=== PATIENT | female | born 1970 | race African-American/Black ===

== ENCOUNTER → 2018-09-02 | Outpatient (CLI) | payer BC ==
--- NOTE | 2018-09-02 12:19 | US ---
EXAMINATION TYPE: US venous doppler duplex LE LT DATE OF EXAM: 09/02/2018 11:53 AM COMPARISON: NONE CLINICAL HISTORY: M79.605 PAIN IN LT LEG. Left leg pain x few months, no hx of blood clots, no blood thinners. SIDE PERFORMED: Left TECHNIQUE: The lower extremity deep venous system is examined utilizing real time linear array sonog mahendra with graded compression, doppler sonography and color-flow sonography. VESSELS IMAGED: External Iliac Vein (EIV) Common Femoral Vein Deep Femoral Vein Greater Saphenous Vein * Femoral Vein Popliteal Vein Small Saphenous Vein * Proximal Calf Veins (* superficial vessels) Left Leg: Negative for DVT. Posterior knee, fluid collection visualized - 3.0 x 1.2 x 1.7 cm IMPRESSION: 1. Left lower extremity negative for deep venous thrombosis. 2. Popliteal cyst left posterior popliteal space
== END | disposition home or self-care (01) ==
LOC: RADUSWWP 11:15
PROVIDERS: ATTEND Family Medicine
DX: M71.22 Synovial cyst of popliteal space [Baker], left knee (principal)

== ENCOUNTER 2019-02-11 17:14 | Emergency (ER) | payer BC, OTHER ==
[2019-02-11] MEDS ORDERED: ASPIRIN 81 MG PO STA (18:03)
[2019-02-11] MEDS ORDERED: NITROGLYCERIN SL TABS 0.4 MG TAB SUBLINGUAL STA ×2 (18:03)
[2019-02-11] MEDS ORDERED: ACETAMINOPHEN TAB 500 MG TAB PO STA (18:03)
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
[2019-02-11] MEDS: NITROGLYCERIN SL TABS 0.4 MG TAB SUBLINGUAL STA ×2 (18:25)
[2019-02-11 19:14] LABS: Basophils % (A) 1 %; Eosinophils # (A) 0.1 k/uL (0-0.7); Eosinophils % (A) 2 %; HCT 42.7 % (34.0-46.0); HGB 13.9 gm/dL (11.4-16.0); Lymphocytes # (A) 1.8 k/uL (1.0-4.8); Lymphocytes % (A) 29 %; MCH 30.7 pg (25.0-35.0); MCHC 32.6 g/dL (31.0-37.0); MCV 94.1 fL (80.0-100.0); Mean Platelet Volume 8.6; Monocytes # (A) 0.4 k/uL (0-1.0); Monocytes % (A) 6 %; Neutrophils # (A) 3.8 k/uL (1.3-7.7); Neutrophils % (A) 60 %; Platelet Count 257 k/uL (150-450); RBC 4.54 m/uL (3.80-5.40); RDW 15.6 % (11.5-15.5); WBC 6.4 k/uL (3.8-10.6)
[2019-02-11 19:15] LABS: ALT 22 U/L (9-52); AST 23 U/L (14-36); African American GFR (CKD) >90 (>60 ml/min/1.73 sqM); Albumin 4.4 g/dL (3.5-5.0); Alkaline Phosphatase 75 U/L (38-126); Anion Gap 7 mmol/L; Blood Urea Nitrogen 11 mg/dL (7-17); Calcium 9.8 mg/dL (8.4-10.2); Carbon Dioxide 27 mmol/L (22-30); Chloride 105 mmol/L (98-107); Glucose 96 mg/dL (74-99); Magnesium 2.1 mg/dL (1.6-2.3); Sodium 139 mmol/L (137-145); Total Bilirubin 0.2 mg/dL (0.2-1.3); Total Protein 7.3 g/dL (6.3-8.2)
--- NOTE | 2019-02-11 19:18 | XR ---
EXAMINATION TYPE: XR chest 2V DATE OF EXAM: 02/11/2019 COMPARISON: None HISTORY: Chest pain TECHNIQUE: Chest examined in the frontal and lateral views. FINDINGS: The heart size is normal. The pulmonary vasculature is normal. Lungs are clear. IMPRESSION: 1. Normal 2 view chest
[2019-02-11 19:25] LABS: INR 0.9 (<1.2); Partial Thromboplastin Time 26.1 sec (22.0-30.0); Prothrombin Time 9.9 sec (9.0-12.0)
[2019-02-11 19:35] VITALS: BP 120/71; PULSE 84; RESP 18; TEMP 98
[2019-02-11 19:43] LABS: D-Dimer 0.69 mg/L FEU (<0.60)
--- NOTE | 2019-02-11 20:30 | CT ---
CT CHEST FOR PULMONARY EMBOLISM. EXAMINATION TYPE: CT angio chest DATE OF EXAM: 02/11/2019 INDICATION: Chest pain and dyspnea. CT DLP: 498.5 mGycm, Automated exposure control for dose reduction was used. CONTRAST: Patient injected with 100ml mL of Isovue 370. COMPARISON: None TECHNIQUE: CT of the chest is performed on a spiral scan at 2 mm thick sections. Study is performed with intravenous contrast timed for evaluation for pulmonary embolism. This will limit additional po rtions of the evaluation. 3-D MIP images reconstructed by the technologist are reviewed on the compu ter in the coronal and sagittal planes. FINDINGS: No persistent filling defects are evident to suggest an acute pulmonary embolism. No mediastinal or hilar adenopathy enlarged by CT criteria is evident. The ascending aorta diameter at the level of the main pulmonary artery is 3.0 cm. The main pulmonary artery diameter at the bifur cation is 2.6 cm. Lung windows are clear. Limited CT section through the upper abdomen are unremarkable. IMPRESSIONS: 1. No acute pulmonary embolism.
== END 2019-02-11 21:53 | disposition left against medical advice (07) ==
LOC: EC 17:14
DX: M79.602 Pain in left arm (principal); R07.89 Other chest pain; R06.00 Dyspnea, unspecified; Z87.828 Personal history of other (healed) physical injury and trauma; Z53.20 Procedure and treatment not carried out because of patient's decision for unspecified reasons
CPT/HCPCS: 36415; 93005; 85379; 80053; 83735; 84484; 85025; 85610; 85730; 71046; 71275; 99285; Q9967

== ENCOUNTER → 2019-03-09 | Outpatient (CLI) | payer OTHER ==
--- NOTE | 2019-03-09 19:25 | MR ---
EXAMINATION TYPE: MR knee LT wo con DATE OF EXAM: 03/09/2019 COMPARISON: Plain film 02/23/2019 HISTORY: Pain in left knee, pain from fall 9 months ago TECHNIQUE: Multiplanar, multisequence imaging of the left knee is performed without IV contrast. FINDINGS: MEDIAL MENISCUS: There is diffuse abnormal increased signal involving the posterior horn of the media l meniscus and discontinuity is identified at the level of the root anchor posteriorly, there is line ar and stellate increased signal at the posterior horn consistent with tear LATERAL MENISCUS: Anterior and posterior horns are intact without tear. CRUCIATE LIGAMENTS: The anterior and posterior cruciate ligaments are intact and unremarkable. COLLATERAL LIGAMENTS: The medial collateral ligament and lateral collateral ligament complex are inta ct and unremarkable. EXTENSOR MECHANISM: Visualized quadriceps and patellar tendons are intact. EFFUSION: Suprapatellar increased T2 hyperintensity is consistent with joint effusion POPLITEAL CYST: There is a semimembranosus gastrocnemius cyst with septations measuring approximatel y 3 x 6.6 x 1.8 cm in size. TRICOMPARTMENT SPACES: Some joint space loss present in the medial compartment CARTILAGE: There is grade 3 to grade IV chondromalacia in the medial compartment, grade 2 to grade II I chondromalacia patellofemoral joint BONE MARROW SIGNAL: Some minimal subchondral reactive marrow signal change suspected in the medial fe moral condyle, posterior patella OTHER: Subcutaneous edema change present especially in the region anterior to the insertion of the p atellar tendon. IMPRESSION: Root anchor tear as described posterior horn of the medial meniscus. Osteoarthritis. House's cyst.
== END | disposition home or self-care (01) ==
LOC: RADMRIMAIN 16:51
PROVIDERS: ATTEND Orthopaedic Surgery
DX: S83.242A Other tear of medial meniscus, current injury, left knee, initial encounter (principal); M17.12 Unilateral primary osteoarthritis, left knee; M71.22 Synovial cyst of popliteal space [Baker], left knee

== ENCOUNTER → 2020-05-17 | Outpatient (CLI) | payer OTHER ==
[2020-05-17 13:56] LABS: Potassium 4.7 mmol/L (3.5-5.1)
[2020-05-17 13:59] LABS: Basophils % (A) 1 %; Eosinophils # (A) 0.1 k/uL (0-0.7); Eosinophils % (A) 1 %; HCT 44.1 % (34.0-46.0); HGB 14.5 gm/dL (11.4-16.0); Lymphocytes # (A) 2.8 k/uL (1.0-4.8); Lymphocytes % (A) 45 %; MCH 30.4 pg (25.0-35.0); MCHC 32.8 g/dL (31.0-37.0); MCV 92.7 fL (80.0-100.0); Mean Platelet Volume 8.8; Monocytes # (A) 0.3 k/uL (0-1.0); Monocytes % (A) 5 %; Neutrophils # (A) 2.9 k/uL (1.3-7.7); Neutrophils % (A) 46 %; Platelet Count 229 k/uL (150-450); RBC 4.76 m/uL (3.80-5.40); RDW 13.7 % (11.5-15.5); WBC 6.3 k/uL (3.8-10.6)
== END ==
LOC: LABWHC1 13:01
PROVIDERS: ATTEND Orthopaedic Surgery
DX: Z01.818 Encounter for other preprocedural examination (principal); M23.92 Unspecified internal derangement of left knee
CPT/HCPCS: 80051; 85025

== ENCOUNTER → 2020-05-24 | Day surgery (SDC) | payer OTHER ==
--- NOTE | 2020-05-23 09:49 | HP ---
HISTORY AND PHYSICAL CHIEF COMPLAINT: Left knee pain. HISTORY OF PRESENT ILLNESS: The patient is a 49-year-old female who presents with progressive left knee pain for the past 18 months. She notes medial pain along with catching and giving way. She has intermittent swelling and stiffness. She has tried multiple treatment modalities to include home exercises in addition to injections and medications. She notes persistent daily pain that limits her. PAST MEDICAL HISTORY: Significant for hypothyroidism and anemia. PAST SURGICAL HISTORY: Significant for tubal ligation and appendectomy. CURRENT MEDICATIONS: Aspirin and iron. ALLERGIES: She denies drug allergies. FAMILY HISTORY: Significant for cancer and diabetes. SOCIAL HISTORY: Significant for previous tobacco use. 16 POINT REVIEW OF SYSTEMS: Otherwise reviewed and is noncontributory. PHYSICAL EXAMINATION: On examination, the patient is approximately 5 foot 1, 200 pounds of endomorphic habitus. HEENT exam is nonfocal. NECK: Supple. EXTREMITIES: She has painless passive motion of her left hip. Straight leg raise is negative. Active motion left knee is from -10 to 115 degrees of flexion. She has a moderate effusion. She is tender about the medial joint line. Collaterals are stable, Geraldine is negative, Staci's elicits medial pain. Her distal neurovascular exam appears intact in the left lower extremity. MRI report left knee shows evidence of a posterior medial meniscal tear in addition to degenerative changes on the medial and patellofemoral compartments. IMPRESSION: 1. Internal derangement left knee with symptomatic medial meniscal tear. 2. Left knee moderate medial and patellofemoral compartment osteoarthrosis. RECOMMENDATIONS: I talked to the patient at length regarding her condition and treatment options. At this point, she is having persistent significant pain and mechanical symptoms that limit her normal function and activities despite extensive conservative measures. After thorough discussion, she opts to proceed with surgery. We will plan to proceed with arthroscopic evaluation with probable partial medial meniscectomy. We will likely perform that as an outpatient procedure. Risks and benefits were discussed at length in layman's terms. MMODL / IJN: [id number] /
[2020-05-23 09:59] VITALS: BMI 36.9
[~2020-05-24] MED LIST: DEXAMETHASONE SOD PHOSPHATE 4 MG/ML 1 ML VIAL IV ONE; HYDROmorphone 0.5 MG/0.5 ML SYRINGE IVP PRN; LACTATED RINGERS 1,000 ML IV SCH; LIDOCAINE 1% (10MG/ML) FOR IV START INTRADERMA PRN; MIDAZOLAM 2 MG/2 ML VIAL IV PRN; ONDANSETRON 4 MG/2 ML VIAL IVP ONE
[2020-05-24 07:15] VITALS: BP 142/64; PULSE 93; RESP 17; TEMP 97.7
== END ==
LOC: OR 06:51
PROVIDERS: ATTEND Orthopaedic Surgery
DX: M23.92 Unspecified internal derangement of left knee (principal); Z53.8 Procedure and treatment not carried out for other reasons; S83.242A Other tear of medial meniscus, current injury, left knee, initial encounter; M17.12 Unilateral primary osteoarthritis, left knee; E03.9 Hypothyroidism, unspecified; Z86.2 Personal history of diseases of the blood and blood-forming organs and certain disorders involving the immune mechanism; Z98.51 Tubal ligation status; Z90.49 Acquired absence of other specified parts of digestive tract; Z79.82 Long term (current) use of aspirin; Z87.891 Personal history of nicotine dependence; Z80.9 Family history of malignant neoplasm, unspecified; Z83.3 Family history of diabetes mellitus; X58.XXXA Exposure to other specified factors, initial encounter
CPT/HCPCS: 84702; 84703

== ENCOUNTER 2020-06-17 08:25 | Day surgery (SDC) | payer OTHER ==
[2020-06-14 13:17] VITALS: BMI 37.8
--- NOTE | 2020-06-16 09:48 | HP ---
HISTORY AND PHYSICAL CHIEF COMPLAINT: Left knee pain. HISTORY OF PRESENT ILLNESS: The patient is a 49-year-old female who presents with left knee pain for the past several months. She notes medial pain along with locking and giving way. It is worse with stairs. She has been taking [place] for this. She rates it 10/10. She has tried a home stretching regimen in addition to weight loss program without much relief. PAST MEDICAL HISTORY: Significant for anemia and hypothyroidism. PAST SURGICAL HISTORY: Significant for tubal ligation and appendectomy. CURRENT MEDICATIONS: 1. Aspirin. 2. [place]. ALLERGIES: She denies drug allergies. FAMILY HISTORY: Significant for cancer, diabetes, and hypertension. SOCIAL HISTORY: Significant for previous tobacco use. REVIEW OF SYSTEMS: Sixteen-point review of systems otherwise is reviewed and is noncontributory. PHYSICAL EXAMINATION: On examination, the patient is approximately 5 feet 1 inches, 200 pounds of endomorphic habitus. HEENT exam is nonfocal. Neck is supple. She has painless passive motion of her left hip. Straight leg raise is negative. Active motion left knee -10 to 115 degrees of flexion. She has a moderate effusion. She is tender about the medial joint line. Collaterals are stable, Geraldine is negative, Staci's elicits medial pain. She does walk with an antalgic gait pattern. Her distal neurovascular exam appears intact in the left lower extremity. X-rays of left knee obtained in the office show moderate medial and patellofemoral compartment narrowing. MRI report left knee shows a posterior medial meniscal tear along with medial compartment degenerative changes. IMPRESSION: 1. Left knee internal derangement with symptomatic medial meniscal tear. 2. Left knee moderate medial and patellofemoral compartment osteoarthrosis. 3. Obesity. RECOMMENDATIONS: I talked to the patient at length regarding her condition and treatment options. At this point, she is having significant pain and mechanical symptoms that limit her normal function activities despite previous conservative measures. After thorough discussion, she opts to proceed with surgery. We will plan to proceed with arthroscopic evaluation with probable partial medial meniscectomy. We will likely perform that as an outpatient procedure. Risks and benefits were discussed at length in layman's terms. MMODL / IJN: [id number] /
[~2020-06-17 08:25] MED LIST changes: -HYDROmorphone 0.5 MG/0.5 ML SYRINGE IVP PRN; -LIDOCAINE 1% (10MG/ML) FOR IV START INTRADERMA PRN; +SCOPOLAMINE 1.5MG/72HR PATCH TRANSDERM ONE
[2020-06-17 09:13] VITALS: TEMP 97.5
[2020-06-17 09:19] LABS: Glucose,Whole Blood 118 mg/dL (75-99)
[2020-06-17] MEDS ORDERED: LIDOCAINE 1% (10MG/ML) FOR IV START INTRADERMA ONE (09:20)
[2020-06-17] MEDS ORDERED: LIDOCAINE 1% INJ 10MG/ML (20 ML MDV) ONE (09:59)
[2020-06-17] MEDS ORDERED: PROPOFOL 10 MG/ML 20 ML VIAL IV ONE (09:59)
[2020-06-17] MEDS ORDERED: fentaNYL (PF) 50 MCG/ML 2 ML AMP ONE (09:59)
[2020-06-17] MEDS ORDERED: HYDROmorphone (PF) 1 MG/ML ONE (09:59)
[2020-06-17] MEDS ORDERED: EPINEPHrine (PF) 1 ML in SODIUM CHLORIDE 0.9% IRRIGATIO 3,000 ML IRRIGATION ONE ×4 (10:18)
--- NOTE | 2020-06-17 10:49 | P.OP ---
Date of Procedure: 06/17/20 Preoperative Diagnosis: Left knee internal derangement Postoperative Diagnosis: Left knee posterior medial meniscal tear/grade 3 chondral injury central distal medial femoral condyle Procedure(s) Performed: Left knee arthroscopic partial medial meniscectomy/medial femoral chondrectomy/microfracture medial femoral condyle Anesthesia: MAUREENA Surgeon: Kendall Barnes Estimated Blood Loss (ml): 10 Pathology: none sent Condition: stable Disposition: PACU Indications for Procedure: The patient's 49-year-old female presents with persistent/progressive left knee pain and mechanical symptoms despite conservative measures. A discussion of the risks and benefits of operative intervention versus continued conservative measures was made with patient. She opted to proceed with surgery. Operative risks to include infection, neurovascular injury, development of blood clots, possible incomplete resolution of symptoms, possible worsening symptoms and need for subsequent procedures was discussed. Informed consent was obtained. Operative Findings: As below Description of Procedure: The patient was brought to the operating room, and after induction of general anesthesia examined the left knee. Collaterals were stable, Geraldine was negative, and posterior drawer was negative. The left lower extremity was prepped and draped in a normal fashion. A superior lateral portal was made through a 3 mm skin incision superior and lateral to the patella. This was used for outflow. A lateral portal was made through a 5 mm vertical skin incision lateral to the patella tendon above the joint line. Diagnostic arthroscopy was performed. On inspection of the medial compartment, and oblique tear involving the meniscal root was noted. This was debrided back to stable base with straight baskets and a motorized shaver. A grade 3 chondral injury involving the distal central portion medial femoral condyle was noted measuring 4 x 4 millimeters. There is a loose chondral flap debrided back to stable base with a motorized shaver. Microfracture was performed with a power pik breaching the subchondral surface down to the bone marrow elements. On inspection of the notch, the anterior cruciate ligament appeared to be intact. On inspection of the lateral compartment, no significant cartilage or meniscal pathology was noted. On inspection of the patellofemoral articulation there was grade 2-3 chondral changes however no loose chondral fragments. The gutters were clear debris. The knee was then thoroughly irrigated. The portals were closed with Steri-Strips. A sterile dressing was applied in addition to a compression stocking. The patient was awoken from general anesthesia and transferred to recovery room in good condition. Blood loss was estimated at 10 mL. No complications were incurred.
[2020-06-17 10:56] VITALS: RESP 16
[2020-06-17] MEDS: HYDROmorphone 0.5 MG/0.5 ML SYRINGE IVP PRN ×3 (11:01→11:10)
[2020-06-17] MEDS ORDERED: ONDANSETRON 4 MG/2 ML VIAL ONE (12:48)
[2020-06-17] MEDS ORDERED: ONDANSETRON 4 MG/2 ML VIAL IVP ONE (12:49)
[2020-06-17 12:55] VITALS: BP 100/61; PULSE 69
== END 2020-06-17 13:32 | disposition home or self-care (01) ==
LOC: OR 08:25
PROVIDERS: ATTEND Orthopaedic Surgery
DX: S83.242A Other tear of medial meniscus, current injury, left knee, initial encounter (principal); S89.82XA Other specified injuries of left lower leg, initial encounter; M17.12 Unilateral primary osteoarthritis, left knee; E03.9 Hypothyroidism, unspecified; M79.7 Fibromyalgia; E66.9 Obesity, unspecified; Z98.51 Tubal ligation status; Z79.82 Long term (current) use of aspirin; Z79.891 Long term (current) use of opiate analgesic; Z86.2 Personal history of diseases of the blood and blood-forming organs and certain disorders involving the immune mechanism; Z90.49 Acquired absence of other specified parts of digestive tract; Z87.891 Personal history of nicotine dependence; Z90.89 Acquired absence of other organs; Z79.1 Long term (current) use of non-steroidal anti-inflammatories (NSAID); Z79.890 Hormone replacement therapy; Z79.899 Other long term (current) drug therapy; Z91.89 Other specified personal risk factors, not elsewhere classified; Z68.41 Body mass index [BMI] 40.0-44.9, adult; Z80.9 Family history of malignant neoplasm, unspecified; Z83.3 Family history of diabetes mellitus; Z82.49 Family history of ischemic heart disease and other diseases of the circulatory system; X58.XXXA Exposure to other specified factors, initial encounter
CPT/HCPCS: 29881; 29879; J1100; J0690; J2405; J0171; J2001; J3010; J1170 ×2; J2704

== ENCOUNTER → 2020-06-28 | Outpatient (CLI) | payer OTHER ==
--- NOTE | 2020-06-28 12:19 | US ---
EXAMINATION TYPE: US transvaginal DATE OF EXAM: 06/28/2020 COMPARISON: NONE CLINICAL HISTORY: R79.89 Other specified abnormal findings of blood. Patient went for surgery in [facility] only to find positive HCG in labs, since April her Beta HCG levels have been hovering between 7 -8, patient had spotting in February with no cycles fr a year prior to that, TECHNIQUE: TV. Transvaginal sonographic images were medically necessary to better assess the follow ing anatomy: everything, patient not full Date of LMP: spotting Feb 2020, no cycle for year prior EXAM MEASUREMENTS: Uterus: 7.8 x 4.7 x 4.4 cm Endometrial Stripe: 0.4 cm Right Ovary: not seen Left Ovary: not seen 1. Uterus: Anteverted wnl 2. Endometrium: wnl 3. Right Ovary: not seen due to bowel gas and atrophy, did assess transabdominally - no tissue seen 4. Left Ovary: not seen due to bowel gas and atrophy, did assess transabdominally - no tissue seen 5. Bilateral Adnexa: wnl 6. Posterior cul-de-sac: wnl Bowel gas limits evaluation off the midline and obscures the ovaries. IMPRESSION: 1. Limited pelvic ultrasound. No obvious abnormalities.
== END | disposition home or self-care (01) ==
LOC: RADUSWWP 09:12
PROVIDERS: ATTEND Family Medicine
DX: R79.89 Other specified abnormal findings of blood chemistry (principal)
CPT/HCPCS: 76830

== ENCOUNTER → 2023-05-29 | Outpatient (CLI) | payer OTHER ==
--- NOTE | 2023-05-30 10:48 | US ---
EXAMINATION TYPE: US thyroid st tissue head/neck DATE OF EXAM: 05/29/2023 COMPARISON: NONE CLINICAL INDICATION: Female, 52 years old with history of E04.1 NONTOXIC SINGLE THYROID NODULE; On meds x 2-3 years; patient states she has had prior thyroid ultrasounds at another facility GLAND SIZE: Right Lobe: 5.7 x 1.6 x 1.8 cm Overall Parenchyma: Heterogeneous Left Lobe: 4.6 x 1.4 x 1.7 cm Overall Parenchyma: Heterogeneous Isthmus Thickness: 0.91 cm NODULES RIGHT: # of nodules measured on right: 1 1. 0.8 0.9x 0.8cm lower , mixed cystic and solid, hypoechoic TR 4 nodule, which is wider than tall, with smooth margins, without echogenic foci. LEFT: # of nodules measured on left: 0 ISTHMUS: # of nodules measured in the isthmus: 0 Bilateral neck scanned, no evidence of lymphadenopathy. IMPRESSION: 1. Heterogeneous enlarged thyroid gland could reflect diffuse thyroiditis/Khoi's or goiter. Clin ically correlate. 2. Solitary 9 mm TR4 nodule right mid to lower pole. 2017 ACR TI-RADS LEVEL: TR-RADS 4 - Moderately Suspicious: Follow if > 1 cm, FNA if > 1.5 cm *Highest TI-RADS level nodule reported
== END | disposition home or self-care (01) ==
LOC: RADUSWWP 15:25
PROVIDERS: ATTEND Internal Medicine Endocrinology, Diabetes & Metabolism
DX: E04.1 Nontoxic single thyroid nodule (principal); R22.0 Localized swelling, mass and lump, head
CPT/HCPCS: 76536

== ENCOUNTER → 2024-02-17 | Outpatient (CLI) | payer MEDICAID ==
--- NOTE | 2024-02-17 14:19 | XR ---
EXAMINATION TYPE: XR cervical spine comp DATE OF EXAM: 02/17/2024 COMPARISON: None HISTORY: 53-year-old female M54.2, cervicalgia TECHNIQUE: 6 views FINDINGS: No predental space widening or prevertebral soft tissue swelling. Degenerative change at the C1 dens articulation. Mild degenerative disc disease lower cervical spine with mild disc space narrowing and endplate spondylosis. Scattered mild to moderate facet and uncovertebral joint arthropathy mid to low er cervical spine. Changes may result in mild bony neuroforaminal narrowing in the left mid to lower cervical spine. Normal odontoid view. Alignment is maintained. IMPRESSION: Mild to moderate spondylotic change mid to lower cervical spine. No malalignment. [facility], , 02/17/2024 2:16 PM
--- NOTE | 2024-02-17 14:37 | XR ---
EXAMINATION TYPE: XR lumbosacral spine 5V DATE OF EXAM: 02/17/2024 Comparison: None Clinical History: 53-year-old female low back pain, evaluate for chiropractor, ANJELICAD Findings: Very minimal intervertebral disc space narrowing upper lumbar spine. Mild facet arthropathy mid to lo wer lumbar spine. Vertebral body heights are preserved and alignment is maintained. Impression: Mild facet arthropathy mid to lower lumbar spine. Mild degenerative disc disease upper lumbar spine. No vertebral compression collapse or malalignment. [facility], , 02/17/2024 2:35 PM
== END | disposition home or self-care (01) ==
LOC: RADXRMAIN 12:23
PROVIDERS: ATTEND Chiropractor
CPT/HCPCS: 72050; 72110

== ENCOUNTER → 2024-08-27 | Outpatient (CLI) | payer OTHER ==
--- NOTE | 2024-08-27 21:49 | US ---
EXAMINATION TYPE: US extremity nonvasculr [facility] DATE OF EXAM: 08/27/2024 COMPARISON: NONE CLINICAL INDICATION: Female, 54 years old with history of M25.562 PAIN IN LEFT KNEE; Pain in left kne e. House's cyst check. Anterior patella area not evaluated due to order for house's cyst- pt states there is also pain anteriorly. TECHNIQUE: Targeted scanning along the popliteal fossa with scanning extended around to the anterome dial aspect of the knee. FINDINGS AND IMPRESSION: [employer] notes: Scanned posterior, swinging around medial-slightly anterior knee. No abnormalities seen by ultrasound at this time. [facility], , 08/27/2024 9:47 PM
== END | disposition home or self-care (01) ==
LOC: RADUSWWP 10:31
PROVIDERS: ATTEND Family Medicine
DX: M25.562 Pain in left knee (principal); Z98.890 Other specified postprocedural states